=== PATIENT | female | born 1995 | race Two or more races ===

== ENCOUNTER 2018-01-20 15:44 | Emergency (ER) | payer OTHER ==
[2018-01-20 16:10] VITALS: BP 107/62; PULSE 68; TEMP 97.9; BMI 21.7
--- NOTE | 2018-01-20 16:10 | PDOC ---
Rapid Medical Evaluation Chief Complaint: Pain, Acute Time Seen by Provider: 01/20/18 16:07 Medical Evaluation: 01/20/18 16:07 I have performed a brief in-person evaluation of this patient. The patient presents with a chief complaint of: right ankle pain/ twisted 2 days ago Pertinent physical exam findings: ankle pain/ mild swellign to lateral I have ordered the following: ankle xray The patient will proceed to the ED for further evaluation. 01/20/18 16:07
--- NOTE | 2018-01-20 16:52 | PDOC ---
History of Present Illness - General Chief Complaint: Pain, Acute Stated Complaint: INJURY Time Seen by Provider: 01/20/18 16:07 History Source: Patient Exam Limitations: No Limitations - History of Present Illness Initial Comments: 01/20/18 16:57 22 yr female states she twisted her right ankle 3 days ago walking down steps. pt has pain to the right ankle. Past History - Past Medical History Allergies/Adverse Reactions: Allergies Allergy/AdvReac Type Severity Reaction Status Date / Time No Known Allergies Allergy Verified 01/20/18 16:08 Home Medications: Ambulatory Orders Naproxen [Naprosyn -] 250 mg PO BID 01/20/18 COPD: No - Suicide/Smoking/Psychosocial Hx Smoking History: Never smoked Review of Systems - Review of Systems Able to Perform ROS?: Yes Is the patient limited Sinhala proficient: No Musculoskeletal: Yes: Symptoms Reported *Physical Exam - Vital Signs Last Vital Signs Temp Pulse Resp BP Pulse Ox 97.9 F 68 18 107/62 98 01/20/18 16:08 01/20/18 16:08 01/20/18 16:08 01/20/18 16:08 01/20/18 16:08 - Physical Exam General Appearance: Yes: Nourished, Appropriately Dressed HEENT: positive: EOMI, REBECCA Extremity: positive: Normal Capillary Refill, Normal Inspection, Normal Range of Motion, Tender (lateral malleolus right no swelling nv intact ) Integumentary: positive: Normal Color, Dry, Warm Neurologic: positive: Fully Oriented, Alert, Normal Mood/Affect, Normal Response , Motor Strength 5/5 Medical Decision Making - Medical Decision Making 01/20/18 16:58 ankle sprain xray is negative air cast placed elevate and apply warm compresses *DC/Admit/Observation/Transfer Diagnosis at time of Disposition: Right ankle swelling - Discharge Dispostion Disposition: HOME - Referrals Referrals: Corey Austin MD [Staff Physician] - - Patient Instructions Additional Instructions: elevate and apply warm compresses or heating pad every 3-4hrs for 20 minutes take ibuprofen or advil, motrin for pain as directed use the splint while awake remove to sleep and bathe follow with the orthopedist if pain worsens or persists - Post Discharge Activity Forms/Work/School Notes: Back to Work
== END 2018-01-20 17:09 | disposition home or self-care (01) ==
LOC: JERFT 15:44
PROC: 2W3QX1Z Immobilization of Right Lower Leg using Splint (ICD-10-PCS; principal; 2018-01-20)
DX: S93.401A Sprain of unspecified ligament of right ankle, initial encounter (principal); X50.1XXA Overexertion from prolonged static or awkward postures, initial encounter; Y93.89 Activity, other specified; Y92.89 Other specified places as the place of occurrence of the external cause; Y99.8 Other external cause status
CPT/HCPCS: 29515; 73610-TC-RT-FY; 99281-25

== ENCOUNTER 2018-11-11 23:53 | Emergency (ER) | payer SELFPAY ==
--- NOTE | 2018-11-12 01:43 | PDOC ---
History of Present Illness - General Chief Complaint: Bite Stated Complaint: POSSIBLE INSECT BITE Time Seen by Provider: 11/12/18 01:16 History Source: Patient - History of Present Illness Initial Comments: 11/12/18 01:38 23 year old female c/o right ankle redness and pain at the site of an insect bite few days ago. denies fever/ chills, streaking, NVD, abdominal pain. leg swelling Past History - Past Medical History Allergies/Adverse Reactions: Allergies Allergy/AdvReac Type Severity Reaction Status Date / Time No Known Allergies Allergy Verified 11/12/18 02:18 Home Medications: Ambulatory Orders Naproxen [Naprosyn -] 250 mg PO BID 01/20/18 Cephalexin Monohydrate [Keflex -] 250 mg PO Q6H #28 capsule 11/12/18 Sulfamethoxazole/Trimethoprim [Bactrim Ds -] 1 tab PO BID #14 tablet 11/12/18 COPD: No - Suicide/Smoking/Psychosocial Hx Smoking History: Never smoked Review of Systems - Review of Systems Able to Perform ROS?: Yes Is the patient limited Slovak proficient: No Integumentary: Yes: Other (insect bite. ) *Physical Exam - Physical Exam General Appearance: Yes: Appropriately Dressed Extremity: positive: Normal Capillary Refill, Other (+ quarter size area of redness, warm to touch. no streaking noted. + distal pulse) Integumentary: positive: Normal Color, Dry, Warm Neurologic: positive: Fully Oriented, Alert Medical Decision Making - Medical Decision Making 11/12/18 02:40 A: insect bite / cellulitis P: antibiotics wound check in 2 days with pcp *DC/Admit/Observation/Transfer Diagnosis at time of Disposition: Cellulitis and abscess of right lower extremity Insect bite Qualifiers: Encounter type: initial encounter Site of insect bite: lower leg Laterality: right Qualified Code(s): S80.861A - Insect bite (nonvenomous), right lower leg, initial encounter - Discharge Dispostion Disposition: HOME Condition at time of disposition: Fair - Prescriptions Prescriptions: Cephalexin Monohydrate [Keflex -] 250 mg PO Q6H #28 capsule Sulfamethoxazole/Trimethoprim [Bactrim Ds -] 1 tab PO BID #14 tablet - Referrals - Patient Instructions Printed Discharge Instructions: DI for Insect Bites and Stings Additional Instructions: follow up with your doctor in 2 days for a wound check return to the ER for any worsening symptoms, increased redness or streaking. - Post Discharge Activity Forms/Work/School Notes: Back to Work
[2018-11-12 02:13] VITALS: BP 123/72; PULSE 72; TEMP 98.5; BMI 27.9
== END 2018-11-12 02:19 | disposition home or self-care (01) ==
LOC: JER 23:53
DX: S80.861A Insect bite (nonvenomous), right lower leg, initial encounter (principal); W57.XXXA Bitten or stung by nonvenomous insect and other nonvenomous arthropods, initial encounter; Y93.89 Activity, other specified; Y92.89 Other specified places as the place of occurrence of the external cause
CPT/HCPCS: 99281-25

== ENCOUNTER 2022-02-05 04:08 | Day surgery (SDC) | payer OTHER ==
[2022-01-31 09:18] VITALS: BMI 24.7
[2022-02-05] MEDS ORDERED: FENTANYL CITRATE/PF 50 MCG/ML VIAL ONE (09:38)
[2022-02-05] MEDS ORDERED: PROPOFOL 20 ML ONE (09:44)
[2022-02-05 11:27] VITALS: RESP 20; TEMP 97.5
[2022-02-05 11:30] VITALS: BP 121/69; PULSE 70
== END 2022-02-05 11:35 | disposition home or self-care (01) ==
LOC: JASU-SURG 04:08
PROVIDERS: ATTEND Urology
PROC: 0TF3XZZ Fragmentation in Right Kidney Pelvis, External Approach (ICD-10-PCS; principal; 2022-02-05 09:00)
DX: N20.0 Calculus of kidney (principal)
CPT/HCPCS: 81025